=== PATIENT | male | born 1955 ===

== ENCOUNTER 2022-10-25 16:22 | Inpatient (IN) | payer OTHER ==
[~2022-10-25] VITALS: Ht 167.6 cm; Wt 63.5 kg
[2022-10-26] MEDS ORDERED: GLUMETZA500 MG PO (10:03)
[2022-10-30] MEDS ORDERED: ATORVASTATIN CA20 MG (09:35)
[2022-10-30] MEDS ORDERED: LISINOPRIL5 MG (09:35)
[2022-11-01] MEDS ORDERED: TRAM1TAB98 PO (07:45)
[2022-11-01] MEDS ORDERED: BACTRIM DS TAB1 EACH PO (07:45)
[2022-11-01] MEDS ORDERED: XARELTO10 MG PO (07:45)
[2022-11-01] MEDS ORDERED: INTEGRA PLUS C1 EACH PO (07:45)
== END 2022-11-01 12:08 | disposition home or self-care (01) | DRG 470 ==
LOC: O/R 10-30 05:10 → SURG 10-30 05:10
PROVIDERS: ADMIT Orthopaedic Surgery Sports Medicine; ATTEND Orthopaedic Surgery Sports Medicine
PROC: 0SRD0J9 Replacement of Left Knee Joint with Synthetic Substitute, Cemented, Open Approach (ICD-10-PCS; principal; 2022-10-30 07:00)
DX: M17.12 Unilateral primary osteoarthritis, left knee (principal); E11.9 Type 2 diabetes mellitus without complications; Z96.652 Presence of left artificial knee joint; Z20.822 Contact with and (suspected) exposure to COVID-19